=== PATIENT | male | born 1955 | race Caucasian/White ===

== ENCOUNTER → 2023-01-21 00:48 | Outpatient (CLI) | payer OTHER, SELFPAY ==
--- NOTE | 2023-01-21 08:45 | DI.RAD_ITS ---
Exam(s) XR FOOT LT COMPLETE EXAM: XR FOOT LT COMPLETE CLINICAL HISTORY: pain in left foot,METATARSALGIA ,PLANTAR FASCITIS,M79.672. TECHNIQUE: 2D digital imaging was performed of the left foot. Three images were obtained. AP, obli que and lateral views were obtained. COMPARISON: No exams were available for comparison FINDINGS: BONES: No acute fracture is present. No bony destructive lesion is seen. There is an old healed 5th m etatarsal deformity. Is a hammertoe deformity of the 2nd and 3rd toe. JOINTS: No dislocation present. There is a fractured screw at the Lisfranc joint. Orthopedic hardwar e is seen traversing the 1st tarsometatarsal joint. There are degenerative changes of the foot ruth cterized by joint space narrowing and osteophytes. The findings are most prominent at the 3rd TMT ashwin int. SOFT TISSUE: Normal. IMPRESSION: Postsurgical and degenerative changes of the foot as described. DATA REPOSITORY: RADIATION DOSE DELIVERED:
--- NOTE | 2023-01-21 08:45 | DI.RAD_ITS ---
Exam(s) XR FOOT RT COMPLETE EXAM: XR FOOT RT COMPLETE CLINICAL HISTORY: pain in right foot,M79.671. TECHNIQUE: 2D digital imaging was performed of the right foot. Three images were obtained. AP, obl ique and lateral views were obtained. COMPARISON: No exams were available for comparison FINDINGS: BONES: No acute fracture is present. No bony destructive lesion is seen. Hammertoe deformities of the 3rd and 4th toes are noted. There is a plantar calcaneal spur. Degenerative changes are seen at th e talonavicular joint. JOINTS: No dislocation present. There is joint space narrowing at the 1st MTP joint. SOFT TISSUE: Normal. IMPRESSION: Degenerative changes of the foot. Hammertoe deformities. DATA REPOSITORY: RADIATION DOSE DELIVERED:
== END ==
PROVIDERS: PCP Internal Medicine; Visit Provider Podiatrist
DX: M72.2 Plantar fascial fibromatosis (principal); M77.41 Metatarsalgia, right foot; M77.42 Metatarsalgia, left foot; Z98.890 Other specified postprocedural states
CPT/HCPCS: 73630